=== PATIENT | female | born 1995 | race Caucasian/White ===

== ENCOUNTER 2017-02-12 21:20 | Observation (INO) | payer OTHER ==
[~2017-02-12] VITALS: Ht 177.8 cm; Wt 70.0 kg
[~2017-02-12 21:20] MED LIST: ATARAX,VISTARIL50 MG PO; CIPRO500 MG PO; FLAGYL500 MG PO; PROZAC10 MG PO; ZOFRAN4 MG PO
[2017-02-12 21:55] LABS: BASOPHIL COUNT 0.1 K/uL (0-0.1); EOSINOPHIL (%) 0.2 % (0-5); HEMATOCRIT 45.7 % (36.0-46.0); IMMATURE GRANULOCYTE (%) 1.3 % (0.0-0.7); IMMATURE GRANULOCYTE COUNT 0.3 K/uL; INSTRUMENT ABS NEUTROPHIL CT 19.2 K/uL; LYMPHOCYTE COUNT 1.9 K/uL (1.0-2.8); MCH 29.8 PG (29.0-34.0); MCHC 32.8 G/DL (30.0-36.0); MCV 90.7 FL (83-99); MEAN PLAT.VOLUME 9.8 uM^3 (9.5-12.4); MONOCYTE (%) 4.5 % (3-12); NEUTROPHIL (%) 85.1 % (45-76); NEUTROPHIL COUNT 19.2 K/uL (1.8-6.4); PLATELET COUNT 203 K/uL (156-360); RBC DIS.WIDTH-CV 12.7 % (11.8-14.6); RBC DIS.WIDTH-SD 42.1 % (39-53); RED BLOOD COUNT 5.04 M/uL (3.80-5.20); WHITE BLOOD COUNT 22.5 K/uL (4.1-10.2)
[2017-02-12 22:03] LABS: CHLORIDE 107 mEq/L (99-109); POTASSIUM 3.9 mEq/L (3.7-5.4); SODIUM 142 mEq/L (136-147)
[2017-02-12 22:05] LABS: GLUCOSE 131 mg/dL (70-99)
[2017-02-12 22:06] LABS: ANION GAP 11 MEQ/L (2-14)
[2017-02-12 22:07] LABS: TOTAL BILIRUBIN 0.6 mg/dL (0.0-1.0)
[2017-02-12 22:09] LABS: ALKALINE PHOSPHATASE 51 IU/L (3-129); GFR ESTIMATE (CALCULATED) > 59 mL/min/
[2017-02-12 22:11] LABS: UREA NITROGEN (BUN) 14 mg/dL (9-23)
[2017-02-12 22:12] LABS: SALICYLATE < 5.0 MG/DL (15-30)
[2017-02-12 22:19] LABS: QUANTITATIVE HCG < 4.0 MIU/ML
[2017-02-12 23:00] LABS: SERUM ETHYL ALCOHOL < 10 mg/dL
[2017-02-13 06:01] VITALS: BP 108/61
[2017-02-13 08:05] VITALS: BP 104/66
[2017-02-13 08:50] LABS: HEMATOCRIT 35.3 % (36.0-46.0); MCH 29.8 PG (29.0-34.0); MCHC 32.6 G/DL (30.0-36.0); MCV 91.5 FL (83-99); RBC DIS.WIDTH-CV 12.9 % (11.8-14.6); RBC DIS.WIDTH-SD 42.7 % (39-53); WHITE BLOOD COUNT 12.1 K/uL (4.1-10.2)
[2017-02-13 08:51] LABS: RED BLOOD COUNT 3.86 M/uL (3.80-5.20)
[2017-02-13 09:15] LABS: ANION GAP 6 MEQ/L (2-14); CHLORIDE 108 MEQ/L (99-109); GFR ESTIMATE (CALCULATED) > 59 mL/min/; GLUCOSE 100 mg/dL (70-99); POTASSIUM 3.8 MEQ/L (3.7-5.4); SAMPLE HEMOLYSIS CHECK 0; SAMPLE ICTERIC CHECK 0; SAMPLE LIPEMIA CHECK 0; SODIUM 140 MEQ/L (136-147); UREA NITROGEN (BUN) 12 mg/dL (9-23)
[2017-02-13 09:29] LABS: MEAN PLAT.VOLUME 10.3 uM^3 (9.5-12.4); PLATELET COUNT 140 K/uL (156-360)
[2017-02-13 11:56] VITALS: BP 106/62
[2017-02-13] MEDS ORDERED: MOXIFLOXACIN H400 MG PO (12:46)
[2017-02-13] MEDS ORDERED: IBUPROFEN800 MG PO (15:35)
== END 2017-02-13 16:27 | disposition home or self-care (01) ==
LOC: EME → EDBD 21:20 → EME 21:20 → 5SOUTH 02-13 04:09 → EDOF 02-13 04:09 → 5SOUTH 02-13 04:09
PROVIDERS: Emergency Medicine; Physician Assistant Medical
DX: T40.2X1A Poisoning by other opioids, accidental (unintentional), initial encounter (principal); J96.01 Acute respiratory failure with hypoxia; J69.0 Pneumonitis due to inhalation of food and vomit; R04.0 Epistaxis; F17.210 Nicotine dependence, cigarettes, uncomplicated; D72.829 Elevated white blood cell count, unspecified; S00.83XA Contusion of other part of head, initial encounter; X58.XXXA Exposure to other specified factors, initial encounter; F19.10 Other psychoactive substance abuse, uncomplicated
CPT/HCPCS: 71010; 71250; 80048; 80053; 81003; 84702; 85025; 85027; 87040; 93005; 94640; 94640 76; G0378; G0480; J0692; J1885; J2310; J3260; J3370; J7030; J7050

== ENCOUNTER 2017-07-17 18:08 | Emergency (ER) | payer OTHER ==
[~2017-07-17] VITALS: Ht 177.8 cm; Wt 65.7 kg
[~2017-07-17 18:08] MED LIST changes: +IBUPROFEN800 MG PO; +MOXIFLOXACIN H400 MG PO
[2017-07-17] MEDS ORDERED: MOTRIN800 MG PO (19:42)
[2017-07-17 20:53] LABS: BASOPHIL COUNT 0.1 K/uL (0-0.1); EOSINOPHIL (%) 0.8 % (0-5); EOSINOPHIL COUNT 0.1 K/uL (0-0.3); IMMATURE GRANULOCYTE (%) 0.4 % (0.0-0.7); INSTRUMENT ABS NEUTROPHIL CT 7.4 K/uL; LYMPHOCYTE COUNT 2.4 K/uL (1.0-2.8); MCH 29.3 PG (29.0-34.0); MCHC 32.6 G/DL (30.0-36.0); MCV 90.1 FL (83-99); MONOCYTE (%) 7.8 % (3-12); MONOCYTE COUNT 0.9 K/uL (0-0.8); NEUTROPHIL (%) 68.4 % (45-76); NEUTROPHIL COUNT 7.4 K/uL (1.8-6.4); PLATELET COUNT 189 K/uL (156-360); RED BLOOD COUNT 4.33 M/uL (3.80-5.20); WHITE BLOOD COUNT 10.9 K/uL (4.1-10.2)
[2017-07-17 21:02] LABS: CHLORIDE 105 mEq/L (99-109); POTASSIUM 3.9 mEq/L (3.7-5.4); SODIUM 139 mEq/L (136-147)
[2017-07-17 21:04] LABS: GLUCOSE 70 mg/dL (70-99)
[2017-07-17 21:06] LABS: ANION GAP 5 MEQ/L (2-14); TOTAL BILIRUBIN 0.5 mg/dL (0.0-1.0)
[2017-07-17 21:07] LABS: ALKALINE PHOSPHATASE 44 IU/L (3-129)
[2017-07-17 21:08] LABS: GFR ESTIMATE (CALCULATED) > 59 mL/min/
[2017-07-17 21:09] LABS: UREA NITROGEN (BUN) 8 mg/dL (9-23)
[2017-07-17] MEDS ORDERED: MOTRIN600 MG PO (22:15)
[2017-07-17 22:22] VITALS: BP 107/81
== END 2017-07-17 22:33 | disposition home or self-care (01) ==
LOC: EME 18:08
PROVIDERS: Emergency Medicine
DX: S06.0X0A Concussion without loss of consciousness, initial encounter (principal); S20.212A Contusion of left front wall of thorax, initial encounter; S20.211A Contusion of right front wall of thorax, initial encounter; S00.11XA Contusion of right eyelid and periocular area, initial encounter; W55.19XA Other contact with horse, initial encounter; R55 Syncope and collapse; F32.9 Major depressive disorder, single episode, unspecified; F41.9 Anxiety disorder, unspecified; Z72.0 Tobacco use; Z88.0 Allergy status to penicillin
CPT/HCPCS: 70450; 71260; 74177; 80053; 85025; 93005; 99281; 99285; J1885; J2765; J7030

== ENCOUNTER 2017-12-29 21:34 | Emergency (ER) | payer OTHER ==
[~2017-12-29] VITALS: Ht 177.8 cm; Wt 73.3 kg
[~2017-12-29 21:34] MED LIST changes: +MOTRIN600 MG PO; +MOTRIN800 MG PO
[2017-12-29 21:58] LABS: BASOPHIL (%) 0.7 % (0-1); BASOPHIL COUNT 0.1 K/uL (0-0.1); EOSINOPHIL (%) 1.4 % (0-5); EOSINOPHIL COUNT 0.1 K/uL (0-0.3); HEMATOCRIT 38.4 % (36.0-46.0); HEMOGLOBIN 13.1 G/DL (11.9-15.5); IMMATURE GRANULOCYTE (%) 0.3 % (0.0-0.7); LYMPHOCYTE COUNT 2.1 K/uL (1.0-2.8); MCH 29.5 PG (29.0-34.0); MCHC 34.1 G/DL (30.0-36.0); MCV 86.5 FL (83-99); MONOCYTE (%) 7.8 % (3-12); MONOCYTE COUNT 0.7 K/uL (0-0.8); NEUTROPHIL (%) 66.8 % (45-76); PLATELET COUNT 162 K/uL (156-360); RBC DIS.WIDTH-CV 12.4 % (11.8-14.6); RBC DIS.WIDTH-SD 39.4 % (39-53); RED BLOOD COUNT 4.44 M/uL (3.80-5.20)
[2017-12-29 22:09] LABS: AMYLASE 46 IU/L (1-118); CHLORIDE 103 mEq/L (99-109); POTASSIUM 3.8 mEq/L (3.7-5.4); SODIUM 138 mEq/L (136-147)
[2017-12-29 22:11] LABS: GLUCOSE 93 mg/dL (70-99)
[2017-12-29 22:14] LABS: AMPHETAMINE NEGATIVE (500 ng/mL); BARBITURATES NEGATIVE (200 ng/mL); BENZODIAZEPINES NEGATIVE (150 ng/mL); BUPRENORPHINE NEGATIVE (10 ng/mL); COCAINE NEGATIVE (150 ng/mL); METHADONE PRESUMPTIVE POSITIVE (200 ng/mL); METHAMPHETAMINE NEGATIVE (500 ng/mL); OPIATES (MORPHINE) NEGATIVE (100 ng/mL); OXYCODONE NEGATIVE (100 ng/mL); PHENCYCLIDINE NEGATIVE (25 ng/mL); PROPOXYPHENE NEGATIVE (300 ng/mL); SERUM ETHYL ALCOHOL < 10 mg/dL; THC CANNABINOIDS NEGATIVE (50 ng/mL); TRICYCLIC ANTIDEPRESSANTS NEGATIVE (300 ng/mL)
[2017-12-29 22:15] LABS: CREATININE 0.7 mg/dL (0.6-1.3); GFR ESTIMATE (CALCULATED) > 59 mL/min/
[2017-12-29 22:16] LABS: UREA NITROGEN (BUN) 10 mg/dL (9-23)
[2017-12-29 22:17] LABS: APPEARANCE CLEAR ((CLEAR)); BILIRUBIN NEGATIVE; BLOOD NEGATIVE; COLOR STRAW ((YELLOW)); GLUCOSE (STRIP) NEGATIVE; KETONES NEGATIVE; LEUKOCYTES NEGATIVE; NITRITE NEGATIVE; PROTEIN (STRIP) NEGATIVE; SPECIFIC GRAVITY 1.006 (1.000-1.030); UCUL ADDED? NO; UROBILINOGEN 0.2 MG/DL (0.2-1.0)
[2017-12-29 22:18] LABS: LIPASE 15 U/L (1.0-51.0)
[2017-12-29 22:40] LABS: QUANTITATIVE HCG 24165.8 MIU/ML
[2017-12-30] MEDS ORDERED: KEFLEX500 MG PO (00:11)
[2017-12-30 00:35] VITALS: BP 116/64
== END 2017-12-30 00:40 | disposition home or self-care (01) ==
LOC: EME → TRA 21:34 → EDBD 21:34 → EME 21:34 → TRA 12-30 00:40
PROVIDERS: Emergency Medicine
PROC: 0JQH0ZZ Repair Left Lower Arm Subcutaneous Tissue and Fascia, Open Approach (ICD-10-PCS; principal; 2017-12-29)
DX: S66.022A Laceration of long flexor muscle, fascia and tendon of left thumb at wrist and hand level, initial encounter (principal); W25.XXXA Contact with sharp glass, initial encounter; F41.9 Anxiety disorder, unspecified; F32.9 Major depressive disorder, single episode, unspecified; F17.200 Nicotine dependence, unspecified, uncomplicated; Z79.891 Long term (current) use of opiate analgesic; Z33.1 Pregnant state, incidental; Z88.0 Allergy status to penicillin
CPT/HCPCS: 73130; 80048; 81003; 82150; 83690; 84702; 85025; 86850; 86900; 86901; 99281; 99285; G0480; J3010